=== PATIENT | male | born 2000 | race Two or more races ===

== ENCOUNTER → 2023-03-17 | Outpatient (CLI) | payer SELFPAY ==
[2023-03-17 17:11] LABS: APPEARANCE, URINE CLEAR (CLEAR); BACTERIA, URINE AUTO NEGATIVE (NEGATIVE); BILIRUBIN, URINE AUTO NEGATIVE (NEGATIVE); BLOOD, URINE BLOOD NEGATIVE (NEGATIVE); COLOR, URINE YELLOW (YELLOW); GLUCOSE, URINE (UA) AUTO NEGATIVE (NEGATIVE); KETONE, URINE AUTO NEGATIVE (NEGATIVE); LEUKOCYTE ESTERASE, URINE AUTO NEGATIVE (NEGATIVE); NITRITE, URINE AUTO NEGATIVE (NEGATIVE); PROTEIN, URINE AUTO NEGATIVE (NEGATIVE); RBC, URINE AUTO 0 /HPF (0-3); SPECIFIC GRAVITY URINE AUTO 1.011 (1.002-1.035); SQUAMOUS EPITHELIAL CELL UR AU 0 /HPF (0-6); UROBILINOGEN, URINE AUTO 0.2 mg/dL (0.0-2.0); WBC, URINE AUTO 1 /HPF (0-3)
[2023-03-17 17:42] LABS: ALBUMIN 3.5 G/DL (3.2-5.2); ALKALINE PHOSPHATASE 65 U/L (46-116); ALT/SGPT 29 U/L (7.0-40); AST/SGOT 43 U/L (<34); BILIRUBIN,TOTAL 0.3 MG/DL (0.3-1.2); BLOOD UREA NITROGEN 7 MG/DL (9-23); CALCIUM LEVEL 9.2 MG/DL (8.5-10.1); CARBON DIOXIDE LEVEL 32 MMOL/L (20-31); CHLORIDE LEVEL 105 MMOL/L (98-107); CREATININE FOR GFR 0.89 MG/DL (0.70-1.30); GLOMERULAR FILTRATION RATE > 60.0 (>60); GLUCOSE, FASTING 88 MG/DL (60-100); SODIUM LEVEL 141 MMOL/L (136-145); TOTAL PROTEIN 6.8 G/DL (5.7-8.2)
[2023-03-17 17:56] LABS: HEPATITIS B SURFACE ANTIGEN NEGATIVE (NEGATIVE)
[2023-03-23 07:16] LABS: HIV 1&2 SCREEN CENTAUR REACTIVE (NEGATIVE)
== END ==
LOC: M PLALAB 15:19
PROVIDERS: ATTEND Internal Medicine Infectious Disease
DX: B20 Human immunodeficiency virus [HIV] disease (principal)

== ENCOUNTER → 2023-05-14 | Outpatient (CLI) | payer SELFPAY ==
[2023-05-14 16:34] LABS: ALKALINE PHOSPHATASE 62 U/L (46-116); ALT/SGPT 21 U/L (7.0-40); AST/SGOT 16 U/L (<34); BILIRUBIN,TOTAL 0.4 MG/DL (0.3-1.2); BLOOD UREA NITROGEN 9 MG/DL (9-23); CALCIUM LEVEL 10.1 MG/DL (8.5-10.1); CARBON DIOXIDE LEVEL 28 MMOL/L (20-31); CHLORIDE LEVEL 106 MMOL/L (98-107); GLOMERULAR FILTRATION RATE > 60.0 (>60); GLUCOSE, FASTING 73 MG/DL (60-100); POTASSIUM SERUM 4.5 MMOL/L (3.5-5.1); SODIUM LEVEL 138 MMOL/L (136-145); TOTAL PROTEIN 7.2 G/DL (5.7-8.2)
== END ==
LOC: M PLALAB 11:55
PROVIDERS: ATTEND Internal Medicine Infectious Disease
DX: B20 Human immunodeficiency virus [HIV] disease (principal); Z86.11 Personal history of tuberculosis

== ENCOUNTER → 2023-09-01 | Outpatient (CLI) | payer MEDICAID, OTHER ==
[2023-09-02 15:08] LABS: % CD8 Pos Lymph 44.3 % (12.0-35.5); %CD4 Pos Lymphs 30.4 % (30.8-58.5); ABS Eosinophils 0.1 x10E3/uL (0.0-0.4); ABS Lymphs 1.7 x10E3/uL (0.7-3.1); ABS Monocytes 0.3 x10E3/uL (0.1-0.9); Abs CD4 Helper 517 /uL (359-1519); Abs CD8 Suppres 753 /uL (109-897); CD4/CD8 Ratio 0.69 (0.92-3.72); Eosinophils 2 % (Not Estab.); HCT 41.4 % (37.5-51.0); HGB 13.9 g/dL (13.0-17.7); HIV-1 RNA PCR QUANT 2 LC550285 130 copies/mL (.); HIV-1 RNA PCR QUANT 3 LC550285 2.114 (.); Immature Grans 0 % (Not Estab.); Lymphocytes 55 % (Not Estab.); MCH 28.7 pg (26.6-33.0); MCHC 33.6 g/dL (31.5-35.7); MCV 85 fL (79-97); Monocytes 10 % (Not Estab.); Neutrophils 32 % (Not Estab.); Platelets 271 x10E3/uL (150-450); RBC 4.85 x10E6/uL (4.14-5.80); RDW 13.2 % (11.6-15.4)
== END ==
LOC: M PLALAB 09:01
PROVIDERS: ATTEND Internal Medicine Infectious Disease
DX: B20 Human immunodeficiency virus [HIV] disease (principal)

== ENCOUNTER 2023-11-07 10:41 | Emergency (ER) | payer OTHER ==
[~2023-11-07] VITALS: Ht 170.2 cm; Wt 65.7 kg
[~2023-11-07 10:41] MED LIST: AMOX875T2 PO; FLON1SPR NARES
[2023-11-07 10:42] VITALS: BP 128/75; TEMP 98.1; O2SAT 100
[2023-11-07] MEDS ORDERED: BICT1TAB2 PO (11:02)
[2023-11-07] MEDS ORDERED: ACETAMINOPHEN TAB 650MG DOSE (2X325MG) PO ONE (12:00)
[2023-11-07] MEDS ORDERED: IBUP-1022 PO (12:00)
[2023-11-07] MEDS ORDERED: IBUPROFEN 800 MG TAB PO ONE (12:00)
[2023-11-07] MEDS ORDERED: METH-1164 PO (12:00)
== END 2023-11-07 12:10 | disposition home or self-care (01) ==
LOC: M ED 10:41
DX: S29.011A Strain of muscle and tendon of front wall of thorax, initial encounter (principal); Y93.B3 Activity, free weights; Y92.9 Unspecified place or not applicable; Y99.8 Other external cause status; X58.XXXA Exposure to other specified factors, initial encounter; Z79.899 Other long term (current) drug therapy

== ENCOUNTER → 2023-12-03 | Outpatient (CLI) | payer OTHER ==
[~2023-12-03] MED LIST changes: +BICT1TAB2 PO; +IBUP-1022 PO; +METH-1164 PO
[2023-12-03 14:09] LABS: ALBUMIN 3.9 G/DL (3.2-5.2); ALKALINE PHOSPHATASE 68 U/L (46-116); ALT/SGPT 48 U/L (7.0-40); AST/SGOT 52 U/L (<34); BILIRUBIN,TOTAL 0.5 MG/DL (0.3-1.2); BLOOD UREA NITROGEN 9 MG/DL (9-23); CALCIUM LEVEL 9.5 MG/DL (8.5-10.1); CARBON DIOXIDE LEVEL 31 MMOL/L (20-31); CHLORIDE LEVEL 107 MMOL/L (98-107); CREATININE FOR GFR 1.15 MG/DL (0.70-1.30); GLOMERULAR FILTRATION RATE > 60.0 (>60); GLUCOSE, FASTING 92 MG/DL (60-100); POTASSIUM SERUM 4.9 MMOL/L (3.5-5.1); SODIUM LEVEL 142 MMOL/L (136-145); TOTAL PROTEIN 6.8 G/DL (5.7-8.2)
== END ==
LOC: M PLALAB 10:40
PROVIDERS: ATTEND Internal Medicine Infectious Disease
DX: B20 Human immunodeficiency virus [HIV] disease (principal)

== ENCOUNTER → 2024-03-01 | Outpatient (CLI) | payer OTHER ==
[2024-03-01 14:42] LABS: HEPATITIS B SURFACE ANTIBODY POSITIVE (POSITIVE)
[2024-03-03 06:09] LABS: % CD8 Pos Lymph 42.9 % (12.0-35.5); %CD4 Pos Lymphs 28.7 % (30.8-58.5); ABS Eosinophils 0.1 x10E3/uL (0.0-0.4); ABS Lymphs 2.2 x10E3/uL (0.7-3.1); ABS Monocytes 0.2 x10E3/uL (0.1-0.9); ABS Neutophils 1.3 x10E3/uL (1.4-7.0); Abs CD4 Helper 631 /uL (359-1519); Abs CD8 Suppres 944 /uL (109-897); CD4/CD8 Ratio 0.67 (0.92-3.72); Eosinophils 2 % (Not Estab.); HCT 49.1 % (37.5-51.0); HGB 16.1 g/dL (13.0-17.7); HIV-1 RNA PCR QUANT 2 LC550285 30 copies/mL (.); HIV-1 RNA PCR QUANT 3 LC550285 1.477 (.); Immature Grans 0 % (Not Estab.); Lymphocytes 56 % (Not Estab.); MCH 28.9 pg (26.6-33.0); MCHC 32.8 g/dL (31.5-35.7); MCV 88 fL (79-97); Monocytes 6 % (Not Estab.); Neutrophils 35 % (Not Estab.); Platelets 204 x10E3/uL (150-450); RBC 5.58 x10E6/uL (4.14-5.80); RDW 12.4 % (11.6-15.4); WBC 3.8 x10E3/uL (3.4-10.8)
== END ==
LOC: M PLALAB 10:45
PROVIDERS: ATTEND Internal Medicine Infectious Disease
DX: B20 Human immunodeficiency virus [HIV] disease (principal); J03.91 Acute recurrent tonsillitis, unspecified

== ENCOUNTER → 2024-07-19 | Outpatient (CLI) | payer OTHER ==
[2024-07-19 14:27] LABS: ALBUMIN 4.1 G/DL (3.2-5.2); ALKALINE PHOSPHATASE 67 U/L (46-116); ALT/SGPT 16 U/L (7.0-40); AST/SGOT 17 U/L (<34); BILIRUBIN,TOTAL 0.6 MG/DL (0.3-1.2); BLOOD UREA NITROGEN 7 MG/DL (9-23); CALCIUM LEVEL 9.9 MG/DL (8.5-10.1); CARBON DIOXIDE LEVEL 32 MMOL/L (20-31); CHLORIDE LEVEL 105 MMOL/L (98-107); CREATININE FOR GFR 0.84 MG/DL (0.70-1.30); GLOMERULAR FILTRATION RATE > 60.0 (>60); GLUCOSE, FASTING 73 MG/DL (60-100); POTASSIUM SERUM 4.5 MMOL/L (3.5-5.1); SODIUM LEVEL 138 MMOL/L (136-145); TOTAL PROTEIN 7.1 G/DL (5.7-8.2)
[2024-07-19 15:06] LABS: GC DNA AMPLIFICATION NEGATIVE (NEGATIVE)
[2024-07-20 14:12] LABS: % CD4+ LYMPHS 29.2 % (30.8-58.5); ABSOLUTE CD4 HELPER 555 /uL (359-1519); BASOPHILS 1 % (Not Estab.); COMMENTS FOR T-CELL CD4 Note: (.); EOSINOPHILS 2 % (Not Estab.); EOSINOPHILS ABSOLUTE 0.1 x10E3/uL (0.0-0.4); HCT 49.8 % (37.5-51.0); HGB 15.9 g/dL (13.0-17.7); LYMPHOCYTES 60 % (Not Estab.); LYMPHOCYTES ABSOLUTE 1.9 x10E3/uL (0.7-3.1); MCH 27.9 pg (26.6-33.0); MCHC 31.9 g/dL (31.5-35.7); MCV 88 fL (79-97); MONOCYTES 10 % (Not Estab.); MONOCYTES ABSOLUTE 0.3 x10E3/uL (0.1-0.9); NEUTROPHILS 27 % (Not Estab.); NEUTROPHILS ABSOLUTE 0.9 x10E3/uL (1.4-7.0); PLT 204 x10E3/uL (150-450); RBC 5.69 x10E6/uL (4.14-5.80); RDW 12.3 % (11.6-15.4); WBC 3.2 x10E3/uL (3.4-10.8)
== END ==
LOC: M PLALAB 11:37
PROVIDERS: ATTEND Internal Medicine Infectious Disease
DX: B20 Human immunodeficiency virus [HIV] disease (principal); Z11.3 Encounter for screening for infections with a predominantly sexual mode of transmission

== ENCOUNTER → 2024-09-30 | Outpatient (CLI) | payer OTHER | LOC: M LAB 14:24 | PROVIDERS: ATTEND Nurse Practitioner Family | DX: Z13.0 Encounter for screening for diseases of the blood and blood-forming organs and certain disorders involving the immune mechanism (principal) ==

== ENCOUNTER → 2024-12-12 | Outpatient (CLI) | payer OTHER ==
[2024-12-12 17:08] LABS: APPEARANCE, URINE CLEAR (CLEAR); BACTERIA, URINE AUTO NEGATIVE (NEGATIVE); BILIRUBIN, URINE AUTO NEGATIVE (NEGATIVE); BLOOD, URINE BLOOD NEGATIVE (NEGATIVE); COLOR, URINE YELLOW (YELLOW); GLUCOSE, URINE (UA) AUTO NEGATIVE (NEGATIVE); KETONE, URINE AUTO NEGATIVE (NEGATIVE); LEUKOCYTE ESTERASE, URINE AUTO NEGATIVE (NEGATIVE); MUCUS, URINE SMALL (NEGATIVE); NITRITE, URINE AUTO NEGATIVE (NEGATIVE); PROTEIN, URINE AUTO NEGATIVE (NEGATIVE); RBC, URINE AUTO 0 /HPF (0-3); SPECIFIC GRAVITY URINE AUTO 1.024 (1.002-1.035); SQUAMOUS EPITHELIAL CELL UR AU 0 /HPF (0-6); WBC, URINE AUTO 0 /HPF (0-3)
[2024-12-12 18:23] LABS: ALBUMIN 4.2 G/DL (3.2-5.2); ALKALINE PHOSPHATASE 68 U/L (40-129); ALT/SGPT 15 U/L (7.0-40); AST/SGOT 12 U/L (<34); BILIRUBIN,TOTAL 0.5 MG/DL (0.3-1.2); BLOOD UREA NITROGEN 10 MG/DL (9-23); CALCIUM LEVEL 10.1 MG/DL (8.5-10.1); CARBON DIOXIDE LEVEL 32 MMOL/L (20-31); CHLORIDE LEVEL 106 MMOL/L (98-107); CREATININE FOR GFR 0.87 MG/DL (0.70-1.30); GLOMERULAR FILTRATION RATE > 60.0 (>60); GLUCOSE, FASTING 103 MG/DL (60-100); POTASSIUM SERUM 4.7 MMOL/L (3.5-5.1); SODIUM LEVEL 143 MMOL/L (136-145); TOTAL PROTEIN 7.7 G/DL (5.7-8.2)
[2024-12-12 19:01] LABS: HEPATITIS C VIRUS ABY INDEX < 0.02 INDEX (<0.8)
[2024-12-12 19:26] LABS: GC DNA AMPLIFICATION NEGATIVE (NEGATIVE)
== END ==
LOC: M PLALAB 13:07
PROVIDERS: ATTEND Internal Medicine Infectious Disease
DX: B20 Human immunodeficiency virus [HIV] disease (principal)